=== PATIENT | male | born 1985 | race Caucasian/White ===

== ENCOUNTER 2019-08-31 00:04 | Observation (INO) ==
[2019-08-31] MEDS ORDERED: NITROGLYCERIN 2% OINT 1 INCH/GM PACK TOP STA (00:27)
[2019-08-31] MEDS ORDERED: ONDANSETRON 4 MG/2 ML VIAL IV STA (00:27)
[2019-08-31] MEDS ORDERED: MORPHINE 4 MG/1 ML VIAL IV STA (00:27)
[2019-08-31] MEDS ORDERED: ASPIRIN 325 MG TABLET PO STA (00:27)
[2019-08-31 00:58] LABS: Basophils # 0.1 10*3/uL (0.0-0.2); Basophils % 0.8 % (0.0-0.8); Eosinophils # 0.3 10*3/uL (0.0-0.87); Hematocrit 44.7 VOL% (42.0-52.0); Immature Granulocytes % 0.6 %; Immature Granulocytes Absolute 0.05 #; Lymphocytes # 1.8 10*3/uL (1.4-4.0); Lymphocytes % 21.8 % (21.2-54.2); Mean Corpuscular HGB Conc 33.6 GM/DL (32-36); Mean Corpuscular Volume 85.3 FL (87-102); Mean Platelet Volume 10.9 FL (9.6-12.0); Monocytes % 7.3 % (1.7-12.7); Neutrophils % 65.5 % (38.7-73.9); Platelet Count 262 T/CUMM (130-400); Red Blood Count 5.24 MC/CUMM (3.8-5.5); Red Cell Distribution Width 13.1 % (9.3-17.3); White Blood Count 8.3 T/CUMM (4-12)
[2019-08-31 00:59] LABS: PT Patient Result 10.5 SECS (9.6-12.2)
[2019-08-31 01:02] LABS: Alanine Aminotransferase 65 U/L (16-61); Alkaline Phosphatase 55 U/L (45-117); Aspartate Amino Transferase 21 U/L (0-37); Blood Urea Nitrogen 11 MG/DL (7-18); Calcium 9.1 MG/DL (8.5-10.1); Estimated Glom Filtration Rate 104 ML/MIN; Glucose 92 MG/DL (74-106); Osmolality,Calculated 271.8 MOS/KG (273-304); Total Protein 7.4 G/DL (6.4-8.3); Troponin I < 0.015 NG/ML (0.00-0.045)
[2019-08-31] MEDS ORDERED: POTASSIUM CHLORIDE 20 MEQ TABLET PO STA (01:28)
[2019-08-31 01:31] LABS: Apearance,Urine CLEAR (Clear); Bilirubin,Urine Negative (Negative); Blood, Urine Negative (Negative); Glucose,Urine (UA) Negative (Negative); Ketones,Urine Negative (Negative); Nitrite,Urine Negative (Negative); Protein,Urine Negative; RBC,Urine 2 /HPF (0-4); Urine Color Straw (Yellow); Urine Specific Gravity 1.009 (1.001-1.035); Urine Urobilinogen < 2.0 EU/DL (0.2-1.0); WBC,Urine 1 /HPF (0-6)
[2019-08-31] MEDS ORDERED: ENOXAPARIN 100 MG/ML SYRINGE SUBCUT STA (01:40)
[2019-08-31] MEDS ORDERED: MORPHINE 4 MG/1 ML VIAL IV PRN (01:43)
[2019-08-31] MEDS ORDERED: ACETAMINOPHEN 325 MG TABLET PO PRN (01:43)
[2019-08-31] MEDS ORDERED: ONDANSETRON 4 MG/2 ML VIAL IV PRN (01:43)
[2019-08-31 01:44] LABS: Barbiturates Screen,Urine Negative (Negative); Benzodiazepines Screen,Urine Negative (Negative); Cannabinoid Screen,Urine Negative (Negative); Opiate Screen,Urine Negative (Negative); Phencyclidine Screen,Urine Negative (Negative)
[2019-08-31 07:00] LABS: Risk Ratio 4.97
[2019-08-31] MEDS ORDERED: PANTOPRAZOLE 40 MG TABLET PO SCH (09:00)
[2019-08-31 13:11] VITALS: BP 107/69
== END 2019-08-31 14:35 | disposition home or self-care (01) ==
LOC: EDUNIT# → EDBD → N.EDINP 00:04 → N.ED 00:04 → N.EDINP 09:03 → N.2W 09:13
PROVIDERS: ADMIT Internal Medicine; ATTEND Internal Medicine